=== PATIENT | male | born 1980 | race Caucasian/White ===

== ENCOUNTER 2017-09-05 12:43 | Emergency (ER) | payer SELFPAY ==
[~2017-09-05] VITALS: Ht 177.8 cm; Wt 65.0 kg
[~2017-09-05 12:43] MED LIST: IBUP800T23 PO
[2017-09-05 13:09] VITALS: BP 144/78; PULSE 81; RESP 20; TEMP 97.9; O2SAT 98
[2017-09-05] MEDS ORDERED: SODIUM CHLOR 0.9% 1000 ML INJ 1,000 ML IV ONE (13:27)
--- NOTE | 2017-09-05 13:27 | PD ---
HPI Chief Complaint: Seizure Time Seen by Provider: 13:11 Travel History International Travel<30 days: No Contact w/Intl Traveler<30days: No Traveled to known affect area: No History of Present Illness HPI 37-year-old male presents to the emergency department via [facility] after possible seizure. Patient states he's had approximately 5 seizures in the past 8 years secondary to alcohol withdrawal. He says last time he had a drink was 2 days ago because he hasn't been able to afford to buy alcohol. He denies illicit drug use. Per EMS bystanders said that he was looking up into the air and then fell over; Some witnesses say he was having some seizure activity and some said he was not; witnesses said that the patient was out anywhere between 1 and 2 minutes. Patient denies symptoms prior to the possible seizure and currently; he denies chest pain, shortness of breath, abdominal pain, nausea, vomiting, incontinence of stool or urine. Patient denies any pain at this time. Symptoms are mild in severity at this time. Denies significant past medical history. Denies current medications. Has never taken antiseizure medications in the past. Allergies to coconuts. Has no other medical complaints. No other modifying factors or associated signs and symptoms. PFSH Past Medical History Diminished Hearing: No Musculoskeletal: Yes (right knee injury) Seizures: Yes (RELATED TO DRINKING PER PT) Social History Alcohol Use: Yes (ALMOST DAILY) Tobacco Use: Yes (1PPD) Substance Use: Yes (MARIJUANA) Allergies-Medications (Allergen,Severity, Reaction): Coded Allergies: coconut (Unverified Allergy, Mild, VOMITING, 07/15/17) Reported Meds & Prescriptions Reported Meds & Active Scripts Active Review of Systems Except as stated in HPI: all other systems reviewed are Neg Physical Exam Narrative GENERAL: Well-nourished, well-developed male patient, in no acute distress SKIN: Warm and dry. HEAD: Atraumatic. Normocephalic. No facial droop noted. Tongue midline. EYES: Pupils equal and round at 2 mm with brisk reaction. No scleral icterus. No injection or drainage. PERRLA. EOMI. ENT: Mucosa pink and moist. Airway patent. NECK: Trachea midline. No lymphadenopathy. CARDIOVASCULAR: Regular rate and rhythm. No murmur appreciated. RESPIRATORY: No accessory muscle use. Clear to auscultation. Breath sounds equal bilaterally. GASTROINTESTINAL: Abdomen soft, non-tender, nondistended. Hepatic and splenic margins not palpable. Bowel sounds are active 4 quadrants. MUSCULOSKELETAL: No obvious deformities. No clubbing. No cyanosis. No edema. NEUROLOGICAL: Awake and alert. Oriented 4. No obvious cranial nerve deficits. Motor grossly within normal limits. Normal speech. No ataxia. No mid -line drift. Moves all extremities. 5/5 strength to all extremities. PSYCHIATRIC: Appropriate mood and affect; insight and judgment normal. Data Data Last Documented VS Vital Signs Date Time Temp Pulse Resp B/P (MAP) Pulse Ox O2 Delivery O2 Flow Rate FiO2 09/05/17 13:09 97.9 81 20 144/78 (100) 98 Orders Orders Complete Blood Count With Diff (09/05/17 13:27) Basic Metabolic Panel (Bmp) (09/05/17 13:27) Drug Screen, Random Urine (09/05/17 13:27) Electrocardiogram (09/05/17 ) Ct Brain W/O Iv Contrast(Rout) (09/05/17 ) Ecg Monitoring (09/05/17 13:27) Iv Access Insert/Monitor (09/05/17 13:27) Oximetry (09/05/17 13:27) Sodium Chlor 0.9% 1000 Ml Inj (Ns 1000 M (09/05/17 13:27) Sodium Chloride 0.9% Flush (Ns Flush) (09/05/17 13:30) Alcohol (Ethanol) (09/05/17 13:40) Labs Laboratory Tests Test 09/05/17 13:40 09/05/17 14:10 White Blood Count 11.0 TH/MM3 Red Blood Count 4.46 MIL/MM3 Hemoglobin 14.6 GM/DL Hematocrit 43.1 % Mean Corpuscular Volume 96.7 FL Mean Corpuscular Hemoglobin 32.7 PG Mean Corpuscular Hemoglobin Concent 33.8 % Red Cell Distribution Width 13.3 % Platelet Count 233 TH/MM3 Mean Platelet Volume 7.2 FL Neutrophils (%) (Auto) 82.3 % Lymphocytes (%) (Auto) 8.0 % Monocytes (%) (Auto) 8.4 % Eosinophils (%) (Auto) 0.8 % Basophils (%) (Auto) 0.5 % Neutrophils # (Auto) 9.1 TH/MM3 Lymphocytes # (Auto) 0.9 TH/MM3 Monocytes # (Auto) 0.9 TH/MM3 Eosinophils # (Auto) 0.1 TH/MM3 Basophils # (Auto) 0.1 TH/MM3 CBC Comment DIFF FINAL Differential Comment Blood Urea Nitrogen 11 MG/DL Creatinine 0.84 MG/DL Random Glucose 107 MG/DL Calcium Level 8.9 MG/DL Sodium Level 134 MEQ/L Potassium Level 4.5 MEQ/L Chloride Level 102 MEQ/L Carbon Dioxide Level 25.3 MEQ/L Anion Gap 7 MEQ/L Estimat Glomerular Filtration Rate 102 ML/MIN Ethyl Alcohol Level LESS THAN 3 MG/DL Urine Opiates Screen NEG Urine Barbiturates Screen NEG Urine Amphetamines Screen NEG Urine Benzodiazepines Screen NEG Urine Cocaine Screen NEG Urine Cannabinoids Screen POS MDM Medical Decision Making Medical Screen Exam Complete: Yes Emergency Medical Condition: Yes Medical Record Reviewed: Yes Differential Diagnosis Alcohol withdrawal, seizure, syncope, cardiac arrhythmia, electrolyte imbalance Narrative Course 37-year-old male arrives via EMS for possible seizure. He has history of seizures in the past from alcohol withdrawal. Says he hasn't drank alcohol in 2 days because of financial reasons. Denies illicit drug use. I discussed the patient with Dr. Glass, my attending physician, and she agrees with plan of care. IV site obtained. CBC, BMP, EKG, CT head, normal saline bolus, EtOH, drug screen ordered. 1515: CBC, BMP unremarkable. CT head with no acute findings. Positive for cannabinoids. EtOH less than 3. Instructed patient to follow up with primary care provider. Patient verbalizes understanding and agreement with treatment plan. Patient is medically cleared and stable for discharge. Discussed reasons to return to the emergency department. Patient agrees with treatment plan. The patients vital signs are stable and the patient is stable for outpatient follow-up and treatment. Patient discharged home, stable and in no acute distress. Diagnosis Primary Impression: Seizure-like activity Additional Impression: Alcohol dependence Qualified Codes: F10.29 - Alcohol dependence with unspecified alcohol-induced disorder Referrals: [facility] (Out patient) Neurologist Primary Care Physician [facility] Patient Instructions: Abuse of Alcohol (ED), Alcohol Dependence (ED), Alcohol Withdrawal (ED), General Instructions, Nonepileptic Seizures (ED) Additional Instructions: Stop drinking alcohol Seek detox for alcohol Follow-up with Osmany Machado/[facility] Follow-up with neurologist Follow-up with primary care provider Return to the emergency department immediately for worsening of symptoms Med/Other Pt SpecificInfo: No Meds Exist/No RX given Disposition: 01 DISCHARGE HOME Condition: Stable Esther Brewer Sep 05, 2017 13:27
[2017-09-05] MEDS ORDERED: SODIUM CHLORIDE 0.9% FLUSH 10 ML FLUSH IVF PRN (13:30)
[2017-09-05 13:59] LABS: AUTOMATED NEUTROPHIL # 9.1 TH/MM3 (1.8-7.7); BASOPHIL # 0.1 TH/MM3 (0-0.2); BASOPHIL % 0.5 % (0.0-2.0); EOSINOPHIL # 0.1 TH/MM3 (0-0.4); EOSINOPHIL % 0.8 % (0.0-4.0); HEMATOCRIT 43.1 % (39.0-51.0); HEMO FLAGS DIFF FINAL; LYMPHOCYTE # 0.9 TH/MM3 (1.0-4.8); MEAN CELL VOLUME 96.7 FL (80.0-100.0); MEAN CORPUSCULAR HEMOGLOBIN 32.7 PG (27.0-34.0); MEAN CORPUSCULAR HGB CONC 33.8 % (32.0-36.0); MONO % 8.4 % (0.0-8.0); NEUT % 82.3 % (16.0-70.0); PLATELET COUNT 233 TH/MM3 (150-450); RED BLOOD COUNT 4.46 MIL/MM3 (4.50-5.90); RED CELL DISTRIBUTION WIDTH 13.3 % (11.6-17.2)
[2017-09-05 14:15] LABS: ANION GAP 7 MEQ/L (5-15); BICARBONATE 25.3 MEQ/L (21.0-32.0); BLOOD UREA NITROGEN 11 MG/DL (7-18); CHLORIDE 102 MEQ/L (98-107); GLOMERULAR FILTRATION RATE 102 ML/MIN (>89); SODIUM (NA) 134 MEQ/L (136-145)
[2017-09-05 14:16] LABS: ALCOHOL LESS THAN 3 MG/DL (0-5); POTASSIUM 4.5 MEQ/L (3.5-5.1)
--- NOTE | 2017-09-05 15:04 | RADRPT ---
EXAM DATE/TIME: 09/05/2017 14:47 [facility] COMPARISON: No previous studies available for comparison. INDICATIONS : Possible seizure. RADIATION DOSE: 32.56 CTDIvol (mGy) MEDICAL HISTORY : None SURGICAL HISTORY : None. ENCOUNTER: Initial ACUITY: 1 day PAIN SCALE: 0/10 LOCATION: cranial TECHNIQUE: Multiple contiguous axial images were obtained of the head. Using automated exposure control and adj ustment of the mA and/or kV according to patient size, radiation dose was kept as low as reasonably a chievable to obtain optimal diagnostic quality images. DICOM format image data is available electro nically for review and comparison. FINDINGS: CEREBRUM: The ventricles are normal for age. No evidence of midline shift, mass lesion, hemorrhage or acute in farction. No extra-axial fluid collections are seen. POSTERIOR FOSSA: The cerebellum and brainstem are intact. The 4th ventricle is midline. The cerebellopontine angle i s unremarkable. EXTRACRANIAL: The visualized portion of the orbits is intact. SKULL: The calvaria is intact. No evidence of skull fracture. CONCLUSION: No acute intracranial disease. Jung Huddleston MD on September 05, 2017 at 15:02 Board Certified Radiologist. This report was verified electronically.
--- NOTE | 2017-09-06 05:13 | EKG ---
Date Performed: 09/05/2017 Time Performed: 14:05:48 PTAGE: 37 years EKG: Sinus rhythm WITH SINUS ARRHYTHMIA SEPTAL MYOCARDIAL INFARCTION ABNORMAL ECG INTERPRETATION BASED ON A DEFAULT AG E OF 40 YEARS PREVIOUS TRACING : 11/24/2009 07.28 DOCTOR: Maico Tay Interpretating Date/Time 09/06/2017 05:07:42
== END 2017-09-05 16:00 | disposition home or self-care (01) ==
LOC: NEPD 12:43
DX: R56.9 Unspecified convulsions (principal); F10.20 Alcohol dependence, uncomplicated; F17.200 Nicotine dependence, unspecified, uncomplicated; I49.8 Other specified cardiac arrhythmias; R94.31 Abnormal electrocardiogram [ECG] [EKG]
CPT/HCPCS: 70450; 80048; 80307; 85025; 93005; 99285; J7030